=== PATIENT | female | born 1965 | race Caucasian/White ===

== ENCOUNTER 2024-06-29 16:32 | Emergency (ER) | payer OTHER, SELFPAY ==
[2024-06-29 16:39] VITALS: BP 138/87
[2024-06-29 16:58] LABS: % Basophils 0.5 % (0-2); % Eosinophils 1.5 % (0-6); % Immature Granulocytes 0.1 % (0-0.5); % Lymphocytes 26.9 % (20.5-51.1); % Monocytes 6.4 % (1.7-9.3); % Neutrophils 64.6 % (42.2-75.2); Absolute Eosinophils 0.1 10^3/uL (0-0.7); Absolute Lymphocytes 2.1 10^3/uL (1.2-3.4); Absolute Monocytes 0.5 10^3/uL (0.1-0.6); Absolute Neutrophils 5.1 10^3/uL (1.4-6.5); Hematocrit 44.2 % (37.0-47.0); Hemoglobin 14.8 g/dL (12.0-16.0); Mean Corp Hgb Conc. 33.5 g/dL (33.0-37.0); Mean Corpuscular Volume 89.5 fL (81.0-99.0); Mean Platelet Volume 9.3 fL (7.4-10.4); Nucleated Red Blood Cells % 0 %; Platelet Count 265 10^3/uL (130-400); Red Blood Cell Count 4.94 10^6/uL (4.20-5.40); Red Cell Dist. Width 12.9 % (11.5-14.5); White Blood Cell Count 7.9 10^3/uL (4.8-10.8)
[2024-06-29 17:18] LABS: ALT (SGPT) 23 U/L (0-35); AST (SGOT) 27 U/L (14-36); Albumin 4.7 g/dl (3.5-5.0); Alkaline Phosphatase 84 U/L (38-126); Blood Urea Nitrogen 13 mg/dl (7-17); Calcium 9.5 mg/dl (8.4-10.2); Carbon Dioxide 29 mmol/L (22-30); Chloride 99 mmol/L (98-107); Glucose 93 mg/dl (70-99); Lipase 111 U/L (23-300); Potassium 4.1 mmol/L (3.5-5.1); Sodium 138 mmol/L (135-145); Total Bilirubin 0.7 mg/dl (0.2-1.3); Total Protein 7.7 g/dl (6.3-8.2); eGFR > 60.00
[2024-06-29 18:51] LABS: Urine Albumin Negative (Neg - Trace); Urine Bilirubin Negative (Negative); Urine Character Clear (Clear); Urine Color Yellow; Urine Glucose Negative (Negative); Urine Ketone Negative (Negative); Urine Leukocyte Negative (Negative); Urine Nitrite Negative (Negative); Urine Occult Blood Negative (Negative); Urine Specific Gravity 1.005 (<1.030); Urine Urobilinogen Negative (Neg - 1+)
--- NOTE | 2024-06-29 20:08 | ED.GENMED ---
History of Present Illness
General
Chief Complaint: Abdominal Pain
Source: patient
Exam Limitations: none
Time Seen by Provider: 06/29/24 19:55
History of Present Illness
History of Present Illness:
This is a 59 year old female that comes in with c/o abd pain. States that on she started with abd pain that something was moving through. States that it stopped in the right upper abd . State that this has been going on for 3 days. State
that the next day she took Sloane oil and she had a little movement. Then the next day she took Magnesium citrate. Today she started to feel dizzy and she felt that the right upper abd hurt to tough. States that she felt a tightness. States that she
has a small goins of diarrhea. states that her stomach still hurts and she felt it hurt when she was breathing or walking. State that when she was waiting in the waiting room she started with some relief. States that she is nauseated and just feels
like she has a buzz on. Denies any fever, chills, chest pain, SOB, vomiting, diarrhea, headache, urinary burning.
Past History
Past History
ED Past Medical History: Asthma and Other (diverticulitis, Migraines, UTI); Negative Arrthythmia or CAD
ED Past Surgical History: Gynecological (Ovarian cyst removed)
Social History
Tobacco: Former smoker
Alcohol: None
Drug: None
Personal:
Living: with family
Employment: Employed
Family History
Family History: Other
Review of Systems
Review of Systems
All Other Systems: ROS reviewed and negative except as documented in HPI and ROS
Constitutional: Reports no symptoms; Denies fever or chills
EENT: Reports no symptoms
Respiratory: Reports no symptoms; Denies cough or trouble breathing
Cardiac: Reports no symptoms; Denies chest pain
ABD/GI: Reports abdominal pain and nausea; Denies vomiting or diarrhea
: Reports no symptoms; Denies dysuria, frequency or urgency
Musculoskeletal: Reports no symptoms
Skin: Reports no symptoms
Neurological: Reports dizzy (Like she has a buzz on); Denies headache
Psychiatric: Reports no symptoms
Phy Exam
General Physical Exam
General Presentation: no apparent distress
General age: appears stated age
General Skin: warm and dry
General Habitus: normal
General Mental: alert
General Hydration: appears well hydrated
ENT Exam
ENT Exam: TM's normal, pharynx normal and neck supple
Eye Exam
Eye Exam: EOMI
Cardiovascular Exam
Cardiovascular Exam: regular rate/rhythm, no edema, no murmur and normal peripheral pulses
Pulmonary Exam
Pulmonary Exam: lungs clear, no respiratory distress, no rales, chest non tender, no crackles, no rhonchi, no wheezing and no cough
Gastrointestinal Exam
Gastrointestinal Exam: normal bowel sounds, soft, no organomegaly, no pulsatile mass, non distended and tender (RUQ tenderness with palpation)
Musculoskeletal Exam
Musculoskeletal Exam: full ROM and no edema
Skin Exam
Skin Exam: normal color, warm/dry, no rash (NO sign of a shingles rash. ) and no petechia
Psychiatric Exam
Psychiatric Exam: normal mood/affect
Course
Orders/Labs/Results
Orders:
Orders
06/29/24 16:43
Electrocardiogram (*1) Urgent
Reason for Study: Abdominal Pain
EKG- Treatment ONCE
06/29/24 16:50
Complete Blood Count/With Diff Urgent
Comprehensive Metabolic Panel Urgent
Lipase Urgent
06/29/24 18:44
Urinalysis Reflex To Culture Urgent
Date Specimen was Collected: 06/29/24
Time Specimen was Collected: 18:42
06/29/24 20:08
US Abdomen Complete/Upper Urgent
Comment:
Reason For Exam: Right sided abd pain
06/29/24 23:01
CT Abd/pelvis W Iv Cont Urgent
Comment:
Reason For Exam: abd pain right sided
0.9% Sodium Chloride 500 ml [Nss] 500 ml IV BOLUS
06/29/24 16:50
06/29/24 16:50
Labs unremarkable. Lipase normal at 111, Urine negative for infection.
Vital Signs
Initial and Last Documented VS:
Initial Vital Signs
Temp Pulse Resp BP Pulse Ox
97.9 F 83 16 138/87 98
06/29/24 16:39 06/29/24 16:39 06/29/24 16:39 06/29/24 16:39 06/29/24 16:39
Last Documented Vital Signs
Temp Pulse Resp BP Pulse Ox
97.9 F 78 14 111/65 98
06/29/24 16:39 06/29/24 22:30 06/29/24 20:18 06/29/24 22:30 06/29/24 22:30
MDM/Problems Addressed
Differential Diagnosis Includes:
gallbladder disease, Shingles,
MDM/Problems Addressed:
This is a 59 year old female that comes in with c/o right upper abd pain. States that this started 3 days ago.
Will get labs Ultrasound. Offered patient pain medication but patient at this time refused.
back into see patient. Patient states that with the Ultrasound she had pain that was shooting down on the right side. Will get CT scan for further evaluation.
back into see patient. Explained that the CT shows wall thickening of the ascending colon. This may be colitis or early diveriticulitis. Will start patient on antibiotics and have her follow up with the family doctor and her GI specialist. Patient
to return with any concerns.
Chronic conditions affecting care:
NA
Acute Exacerbation and/or Progression of Chronic Illness:
NA
*Radiology
Radiology exam reviewed: radiology read reviewed (US- Night hawk- Normal gallbadder. No sludge or gallstones. Negative Gutierrez sign. No biliary ductal dilation. Visualized liver and right kidney without gross abnormality. Pancreas not seen. No free
fluid. CT- night hawk- Scattered liquid stool throughout the colon, Reflecting knwon diarrhea state) and all reviewed NAD by ED Provider (CT cont- Mild wall thickening of ascending colon may reflex short segment colitis or early diveritculitis.
Colonic diverticulosis. No bowel obstruction. Abscess or free air. Normal appendix. Right lower quadrant. remainder of abdominal organs without acute abnormality. Small umbilical herniation fa )
*Pulse Oximetry
Patient hypoxic: no
*EKG
Interpreted by ED Provider?: Yes
Heart Rate: 71
Rate: normal
Rhythm: sinus
[place]: left axis deviation
Interval: normal interval
QRS Pattern: normal QRS
Ischemia: no ischemia
*Concrete Swimming Pool Installer Interpretation
Rate: Concrete Swimming Pool Installer- N/A
*Critical Care Note
Total Time (30-74mins, 75-104mins- exclusive of procedures): Not Applicable
ED Attending Note
-
Portions of this chart may have been created with voice recognition software.� Occasional wrong word or��sound alike� substitutions may have occurred due to the inherent limitations of voice recognition software.
Discharge Plan
Departure
Patient Disposition: Home (Routine Discharge)
Date of Disposition: 06/30/24
Time of Disposition: 00:57
Patient with high blood pressure during this ER visit?: No
Condition: Good
Covid-19: Not Applicable
Discharge Problem:
Diverticulitis
Instructions: Diverticulitis (DC)
Prescriptions:
New
doxycycline hyclate 100 mg tablet
100 mg PO BID Qty: 19 0RF
Referrals:
Taylor Maurer MD [Family Provider] - Call in 1-3 days for appt
Activity Restrictions/Additional Instructions:
As discussed, your blood work is normal and your Urine is negative for infection. Your Ultrasound was normal. Your CT shows that there is wall thickening of the ascending colon which looks like diverticulitis. You have been given your first dose of
antibiotic here and a prescription has been sent to your Pharmacy. Please take as directed. Follow up with the family doctor for recheck. IF YOU HAVE INCREASED OR CHANGING PAIN, OR YOU HAVE ANY OTHER CONCERNS PLEASE RETURN TO THE EMERGENCY ROOM.
Interventions
Interventions:
*Risk Screen - Suicide Last Done: 06/29/24 16:39
*General Assessment Last Done: 06/29/24 20:13
*Neglect/Abuse Screening Last Done: 06/29/24 16:39
*ED COVID-19 Vaccine History Last Done: 06/29/24 20:13
FA-Dfwqji-Xdojziyylq Assessment Last Done: 06/29/24 20:27
Discharge Date and Time
Print Language: GREENLANDIC
[2024-06-29 20:13] VITALS: BMI 34.7
[2024-06-29 20:18] VITALS: BP 120/69
--- NOTE | 2024-06-29 20:19 | EDRN ---
Pt developed abd pain [place] night while she was sleeping and says it felt like a painful BM going through her intestine. Next night, pt took castor oil and got little results. Next night, pt drank mag citrate and had diarrhea hours later. In
the morning, pt used a fleet enema and she felt the original pain went away and moved to R side abdomen. Pt leaning today and felt movement in R side abdomen and she had a goins of diarrhea and her abdomen filled with air. Air dissipated while
waiting in [facility]. Pt says her skin hurts to touch the area. Last goins of fluid/diarrhea was around 1430. Pt adds she has not been drinking regularly and her diet has been terrible with running constantly. Pt says she was having regular BM until
Tim night. Pt has 'little chest pain off to the one side' couple days ago. No sob, fever/cough, urinary symptoms, weakness. Pt has felt dizzy and chilled.
[2024-06-29 21:00] VITALS: BP 102/64
[2024-06-29 22:30] VITALS: BP 111/65
[2024-06-29] MEDS: NSS 500 IV (23:18)
[2024-06-30] MEDS: VIBRAMYCIN 100 MG PO (01:03)
== END 2024-06-30 01:11 | disposition home or self-care (01) ==
LOC: EMR 16:32
PROVIDERS: Emergency Medicine; EMERGENCY PHYSICIAN Emergency Medicine; FAMILY PHYSICIAN Family Medicine
DX: K57.92 Diverticulitis of intestine, part unspecified, without perforation or abscess without bleeding (principal); J45.909 Unspecified asthma, uncomplicated; Z87.891 Personal history of nicotine dependence
CPT/HCPCS: 96360; 99284; 74177; 76700; 80053; 81003; 83690; 85025; 93005; Q9967